=== PATIENT | male | born 1990 | race Two or more races ===

== ENCOUNTER 2024-10-05 14:27 | Emergency (ER) | payer MEDICAID ==
[~2024-10-05] VITALS: Ht 175.3 cm; Wt 72.7 kg
[2024-10-05 14:41] VITALS: TEMP 98.2
[2024-10-05 15:31] VITALS: BP 115/74; PULSE 65; RESP 17; O2SAT 98
== END 2024-10-05 15:48 | disposition home or self-care (01) ==
LOC: EMS 14:27
DX: S62.634A Displaced fracture of distal phalanx of right ring finger, initial encounter for closed fracture (principal); X58.XXXA Exposure to other specified factors, initial encounter; Y93.89 Activity, other specified; Y92.89 Other specified places as the place of occurrence of the external cause; Y99.8 Other external cause status
CPT/HCPCS: 99283